=== PATIENT | female | born 1995 | race Caucasian/White ===

== ENCOUNTER → 2017-11-02 | Outpatient (REF) | payer MEDICAID, OTHER ==
[2017-11-07 14:20] LABS: HEPTACARBOXYLPORPHYRIN URINE 4 ug/L (0-2); HEXACARBOXYLPORPHYRIN URINE <1 ug/L (0-1); PENTACARBOXYLPORPHYRIN URINE 1 ug/L (0-2); UROPORPHYRIN URINE 9 ug/L (0-20)
== END ==
LOC: M LAB REF 12:55
PROVIDERS: ATTEND Internal Medicine Medical Oncology
DX: E80.21 Acute intermittent (hepatic) porphyria (principal)